=== PATIENT | male | born 2000 | race Caucasian/White ===

== ENCOUNTER 2021-05-01 14:21 | Day surgery (SDC) | payer OTHER ==
[~2021-05-01] VITALS: Ht 162.6 cm; Wt 60.5 kg
[2021-05-01] MEDS ORDERED: REMERON 15M15 MG/TA1 PO (14:23)
[2021-05-01] MEDS ORDERED: TESSALON P100 MG/CAP PO (14:23)
[2021-05-01 14:36] VITALS: BP 151/91; PULSE 68; TEMP 98.4
[2021-05-01] MEDS ORDERED: NORCO 325 MG-51 TAB PO (15:17)
[2021-05-01] MEDS ORDERED: FLOMAX 0.40.4 MG/CAP PO (15:17)
[2021-05-01 16:19] VITALS: BP 94/52; PULSE 84; TEMP 97.8
--- NOTE | 2021-05-01 16:19 | NUR ---
Patient arrived back into [facility] from PACU. Report recieved from FULLING MACHINE OPERATORShaye.
[2021-05-01 16:32] VITALS: TEMP 97.8
[2021-05-01 16:34] VITALS: BP 106/72; PULSE 72
[2021-05-01 16:49] VITALS: BP 108/62; PULSE 55
--- NOTE | 2021-05-01 16:49 | NUR ---
Patient went to restroom and was able to void. Patient states he is feeling nauseous so PRN zofran was given per AUG.
--- NOTE | 2021-05-01 16:52 | NUR ---
Discharge instructions discussed with patient. IV removed with no complications.
--- NOTE | 2021-05-01 17:51 | NUR ---
Patient escorted to emergency department entrance via ambulation. Friend met at entrance. Patient left in the care of his friend.
== END 2021-05-01 17:53 | disposition home or self-care (01) ==
LOC: SDCO 14:21
DX: N20.1 Calculus of ureter (principal); F17.290 Nicotine dependence, other tobacco product, uncomplicated; Z79.899 Other long term (current) drug therapy
CPT/HCPCS: C1769; C2617; J0690; J1100; J2405; J2704; J3010; J7120; Q9967

== ENCOUNTER 2021-08-28 09:49 | Emergency (ER) | payer OTHER ==
[~2021-08-28] VITALS: Ht 162.6 cm; Wt 55.1 kg
[~2021-08-28 09:49] MED LIST: FLOMAX 0.40.4 MG/CAP PO; NORCO 325 MG-51 TAB PO; REMERON 15M15 MG/TA1 PO; TESSALON P100 MG/CAP PO
[2021-08-28] MEDS ORDERED: ZOFRAN 4MG T4 MG/TAB PO (10:08)
[2021-08-28 11:06] LABS: BASO % 0.2 % (0.0-2.0); EOS % 0.1 % (0.0-4.0); GRAN # 9.8 K/mm3 (1.4-6.5); GRAN % 78.1 % (42.2-75.2); HEMATOCRIT 44.2 % (42.0-52.0); HEMOGLOBIN 15.9 g/dl (13.5-18.0); LYMPH # 1.6 K/mm3 (1.2-3.4); LYMPH % 12.9 % (20.0-51.0); MEAN CELL VOLUME 83 fl (80.0-100.0); MEAN CORPUSCULAR HEMOGLOBIN 30 pg (27-31); MEAN CORPUSCULAR HGB CONC 36 g/dl (33.0-37.0); MEAN PLATELET VOLUME 10.5 fl (7.4-10.4); MONO % 8.2 % (1.7-9.3); PLATELET COUNT 363 K/mm3 (130-400); RED BLOOD COUNT 5.31 M/mm3 (4.20-5.60)
[2021-08-28 11:26] LABS: BILIRUBIN,TOTAL 1.2 mg/dL (0.2-1.2); CALCIUM 9.7 mg/dL (8.4-10.2); CREATININE, serum 1.18 mg/dL (0.72-1.25); POTASSIUM 3.7 mmol/L (3.5-4.5); TOTAL PROTEIN 8.4 gm/dL (6.2-8.1)
[2021-08-28] MEDS ORDERED: ZOFRAN ODT8 MG PO (14:13)
[2021-08-28 14:49] VITALS: BP 132/68; PULSE 72
== END 2021-08-28 14:51 | disposition home or self-care (01) ==
LOC: COL.ER 09:49
PROVIDERS: Nurse Practitioner Family
DX: K59.00 Constipation, unspecified (principal); D72.829 Elevated white blood cell count, unspecified
CPT/HCPCS: J2405; J7030; Q9967

== ENCOUNTER → 2021-09-26 | Outpatient (CLI) | payer OTHER ==
[~2021-09-26] MED LIST changes: +ZOFRAN 4MG T4 MG/TAB PO; +ZOFRAN ODT8 MG PO
== END ==
LOC: COL.RAD 11:56
DX: N13.2 Hydronephrosis with renal and ureteral calculous obstruction (principal)
CPT/HCPCS: A9562; J1940